=== PATIENT | female | born 1995 | race African-American/Black ===

== ENCOUNTER 2016-08-30 22:19 | Emergency (ER) | payer OTHER ==
[2016-08-30 20:15] LABS: INFLUENZA A NEG (NEG); INFLUENZA B NEG (NEG)
[~2016-08-30 22:19] MED LIST: VOLTAREN75 MG PO
== END 2016-08-30 22:48 | disposition home or self-care (01) ==
LOC: CED 22:19
PROVIDERS: Nurse Practitioner
DX: J06.9 Acute upper respiratory infection, unspecified (principal); F17.210 Nicotine dependence, cigarettes, uncomplicated
CPT/HCPCS: 87651; 87804; 99283

== ENCOUNTER 2016-12-26 15:25 | Emergency (ER) | payer OTHER | END 2016-12-26 15:55 | disposition home or self-care (01) | LOC: CFTX 15:25 → CED 15:25 → CFTX 15:55 | DX: K11.23 Chronic sialoadenitis (principal); J45.909 Unspecified asthma, uncomplicated; Z79.899 Other long term (current) drug therapy | CPT/HCPCS: 99282 ==

== ENCOUNTER 2017-03-05 13:14 | Emergency (ER) | payer OTHER ==
[~2017-03-05] VITALS: Ht 157.5 cm; Wt 69.4 kg
[2017-03-05 13:58] LABS: URINE SOURCE CLEAN CATCH
[2017-03-05 14:02] LABS: URINE APPEARANCE CLEAR; URINE BILIRUBIN NEG (NEG); URINE BLOOD 1+ (NEG); URINE COLOR YELLOW; URINE GLUCOSE NEG (NEG); URINE KETONE TRACE (NEG); URINE LEUKOCYTE ESTERASE 1+ (NEG); URINE NITRATE NEG (NEG); URINE PROTEIN NEG (NEG); URINE SPECIFIC GRAVITY 1.028 (1.003-1.035)
[2017-03-05 14:04] LABS: CULTURE INDICATED? YES; URINE BACTERIA AUWI 1+ (NEGATIVE); URINE SQUAMOUS EPITHELIAL CELL OCC /[HPF]
[2017-03-08 08:30] LABS: CHLAMYDIA TRACH Detected (Not Detected); N GONOR Detected (Not Detected)
== END 2017-03-05 15:51 | disposition home or self-care (01) ==
LOC: CED 13:14
PROVIDERS: Emergency Medicine
DX: N73.0 Acute parametritis and pelvic cellulitis (principal)
CPT/HCPCS: 81003; 84703; 87086; 87491; 87591; 87808; 87905; 96372; 99284; J0696